=== PATIENT | female | born 1995 | race Caucasian/White ===

== ENCOUNTER 2017-10-29 12:06 | Day surgery (SDC) | payer OTHER ==
[~2017-10-29 12:06] MED LIST: CEFAZOLIN 2 GM/50 ML (PMX) 50 ML IVPB; SOD CHLORIDE 0.9% 1,000 ML IV
[2017-10-29] MEDS ORDERED: HYDROmorphONE (0.2 MG/ML) 10ML SYG IV ×3 (15:00)
[2017-10-29] MEDS ORDERED: DIPHENHYDRAMINE 50 MG INJ IV (15:00)
[2017-10-29] MEDS ORDERED: MEPERIDINE 25 MG INJ IV (15:00)
[2017-10-29] MEDS ORDERED: OXYCODONE/ACETAMINOPHEN (5/325) TAB PO ×2 (15:00)
[2017-10-29] MEDS ORDERED: PROPOFOL 20 ML (15:18)
[2017-10-29] MEDS ORDERED: METOCLOPRAMIDE 10 MG INJ (15:18)
[2017-10-29] MEDS ORDERED: MIDAZOLAM 1 MG/ML 2 ML INJ (15:18)
[2017-10-29] MEDS ORDERED: ROCURONIUM 50 MG INJ ×3 (15:18→16:28)
[2017-10-29] MEDS ORDERED: ONDANSETRON 4 MG INJ (15:18)
[2017-10-29] MEDS ORDERED: ROPIVACAINE 0.5 % 30 ML VIAL (15:19)
[2017-10-29] MEDS ORDERED: FENTAnyl 50 MCG/ML VIAL (15:23)
[2017-10-29] MEDS ORDERED: CEFAZOLIN 1 GM INJ (15:54)
[2017-10-29] MEDS ORDERED: HYDROmorphONE 2 MG/ML SYG (15:54)
[2017-10-29] MEDS ORDERED: KETOROLAC 30 MG INJ (15:56)
[2017-10-29] MEDS: BUPIVACAINE 0.25% (MPF) 30 ML INJ (16:23)
[2017-10-29] MEDS ORDERED: NEOSTIGMINE 3 MG/3 ML SYRINGE (16:35)
[2017-10-29] MEDS ORDERED: GLYCOPYRROLATE 0.4 MG INJ (16:35)
[2017-10-29] MEDS ORDERED: ACETAMINOPHEN 1000MG/100ML IV 100 ML (16:36)
[2017-10-29] MEDS ORDERED: ONDANSETRON 4 MG INJ IV (17:00)
[2017-10-29] MEDS ORDERED: IBUPROFEN 600 MG TAB PO (17:00)
[2017-10-29] MEDS ORDERED: HYDROCODONE/APAP (5/325) TAB PO (17:00)
[2017-10-29] MEDS ORDERED: KETOROLAC 30 MG INJ IV (17:00)
[2017-10-29] MEDS ORDERED: morphine 2 MG INJ IV (17:00)
[2017-10-29] MEDS: HYDROCODONE/APAP (5/325) TAB PO (17:42)
[2017-10-29] MEDS: ONDANSETRON 4 MG INJ IV (17:42)
== END 2017-10-29 19:03 | disposition home or self-care (01) ==
LOC: SDS 12:06
DX: K80.10 Calculus of gallbladder with chronic cholecystitis without obstruction (principal); E11.9 Type 2 diabetes mellitus without complications
CPT/HCPCS: 47562; 82962; 84703; 88304

== ENCOUNTER 2018-08-10 21:49 | Emergency (ER) | payer OTHER ==
[2018-08-11] MEDS: SOD CHLORIDE 0.9% 1,000 ML IV (03:57)
[2018-08-11 04:02] LABS: ADD MAN DIFF? NO
[2018-08-11 04:06] LABS: BASOPHIL # 0.1 10^3/ul (0.0-0.1); BASOPHILS % 0.5 % (0.0-2.0); EOSINOPHILS # 0.1 10^3/ul (0.0-0.5); EOSINOPHILS % 0.8 % (0.0-7.0); HEMATOCRIT 44.6 % (37.0-47.0); LYMPHOCYTES # 3.5 10^3/ul (0.8-2.9); LYMPHOCYTES % 25.2 % (15.0-51.0); MEAN CORPUSCULAR HEMOGLOBIN 28.8 pg (29.0-33.0); MEAN CORPUSCULAR HGB CONC 33.6 g/dl (32.0-37.0); MEAN CORPUSCULAR VOLUME 85.6 fl (82.0-101.0); MEAN PLATELET VOLUME 9.9 fl (7.4-10.4); MONOCYTE # 0.8 10^3/ul (0.3-0.9); MONOCYTES % 5.9 % (0.0-11.0); NEUTROPHIL # 9.2 10^3/ul (1.6-7.5); PLATELET COUNT 343 10^3/UL (140-415); RED BLOOD COUNT 5.21 10^6/ul (4.20-5.40); RED CELL DISTRIBUTION WIDTH 11.8 % (11.5-14.5)
[2018-08-11 04:06] LABS: WHITE BLOOD COUNT 13.8 10^3/ul (4.8-10.8)
[2018-08-11 04:23] LABS: ALANINE AMINOTRANSFERASE 108 IU/L (13-69); ALBUMIN 4.5 g/dl (3.3-4.9); ALBUMIN/GLOBULIN RATIO 1.36; ALKALINE PHOSPHATASE 115 IU/L (42-121); ANION GAP 10 (5-13); ASPARTATE AMINO TRANSFERASE 57 IU/L (15-46); BILIRUBIN,INDIRECT 1.3 mg/dl (0-1.1); BILIRUBIN,TOTAL 1.3 mg/dl (0.2-1.3); BLOOD UREA NITROGEN 10 mg/dl (7-20); CALCIUM 9.5 mg/dl (8.4-10.2); CARBON DIOXIDE 25 mmol/L (21-31); CHLORIDE 106 mmol/L (97-110); CREATININE 0.58 mg/dl (0.44-1.00); Estimated GFR > 60 mL/min (>60); GLUCOSE 129 mg/dl (70-220); LIPASE 96 U/L (23-300); POTASSIUM 3.5 mmol/L (3.5-5.1); SODIUM 141 mmol/L (135-144); TOTAL PROTEIN 7.8 g/dl (6.1-8.1)
[2018-08-11] MEDS: ONDANSETRON 4 MG INJ IV (04:34)
[2018-08-11] MEDS: ACETAMINOPHEN 500 MG TAB PO (05:11)
[2018-08-11 06:06] LABS: ADD UMIC YES; UR ASCORBIC ACID NEGATIVE (NEGATIVE); UR BACTERIA FEW /HPF (NONE SEEN); UR BILIRUBIN (Dip) NEGATIVE (NEGATIVE); UR BLOOD (Dip) NEGATIVE (NEGATIVE); UR CLARITY SLIGHTLY CLOUDY (CLEAR); UR COLOR YELLOW (YELLOW); UR GLUCOSE (Dip) NEGATIVE (NEGATIVE); UR KETONES (Dip) 2+ mg/dL (NEGATIVE); UR LEUKOCYTE ESTERASE (Dip) TRACE Leu/ul (NEGATIVE); UR MUCUS MANY /HPF (NONE SEEN); UR NITRITE (Dip) NEGATIVE (NEGATIVE); UR RBC 3 /HPF (0-5); UR SPECIFIC GRAVITY (Dip) 1.025 (1.003-1.030); UR SQUAMOUS EPITHELIAL CELL MANY /HPF (FEW); UR TOTAL PROTEIN (Dip) NEGATIVE (NEGATIVE); UR UROBILINOGEN (Dip) 1+ mg/dL (NEGATIVE); UR WBC 7 /HPF (0-5)
== END 2018-08-11 07:07 | disposition home or self-care (01) ==
LOC: FTE 21:49
DX: R11.10 Vomiting, unspecified (principal); E11.9 Type 2 diabetes mellitus without complications; R10.2 Pelvic and perineal pain; Z33.1 Pregnant state, incidental; Z79.84 Long term (current) use of oral hypoglycemic drugs; Z87.891 Personal history of nicotine dependence
CPT/HCPCS: 36415; 76801; 76817; 80053; 81001; 81025; 83690; 84702; 85025; 96361; 96374; 99285-25

== ENCOUNTER 2019-02-04 10:12 | Outpatient (CLI) | payer OTHER ==
[2019-02-04 12:37] LABS: ADD UMIC YES; UR ASCORBIC ACID NEGATIVE (NEGATIVE); UR BACTERIA FEW /HPF (NONE SEEN); UR BILIRUBIN (Dip) NEGATIVE (NEGATIVE); UR BLOOD (Dip) 1+ mg/dL (NEGATIVE); UR CLARITY CLOUDY (CLEAR); UR COLOR YELLOW (YELLOW); UR GLUCOSE (Dip) NEGATIVE (NEGATIVE); UR KETONES (Dip) NEGATIVE (NEGATIVE); UR LEUKOCYTE ESTERASE (Dip) 3+ Leu/ul (NEGATIVE); UR MUCUS FEW /HPF (NONE SEEN); UR NITRITE (Dip) NEGATIVE (NEGATIVE); UR NONSQUAMOUS EPITHELIAL CELL 2 /HPF (NONE SEEN); UR RBC 74 /HPF (0-5); UR SPECIFIC GRAVITY (Dip) 1.017 (1.003-1.030); UR SQUAMOUS EPITHELIAL CELL MANY /HPF (FEW); UR TOTAL PROTEIN (Dip) 2+ mg/dl (NEGATIVE); UR UROBILINOGEN (Dip) NEGATIVE (NEGATIVE); UR WBC > 182 /HPF (0-5)
[2019-02-04 13:57] LABS: RUPTURE FETAL MEMBRANES NEGATIVE (NEGATIVE)
== END 2019-02-04 14:40 | disposition home or self-care (01) ==
LOC: OBT 10:12 → L-D 10:14 → OBT 14:40
DX: O26.893 Other specified pregnancy related conditions, third trimester (principal); R10.9 Unspecified abdominal pain; O24.415 Gestational diabetes mellitus in pregnancy, controlled by oral hypoglycemic drugs; Z3A.29 29 weeks gestation of pregnancy
CPT/HCPCS: 76817; 76818; 81001; 82962; 84112; 87086